=== PATIENT | female | born 1930 | race Caucasian/White ===

== ENCOUNTER 2019-03-11 12:10 | Emergency (ER) | payer OTHER ==
[~2019-03-11] VITALS: Ht 147.3 cm; Wt 59.0 kg
[2019-03-11] MEDS ORDERED: SYNTHROID75 MCG PO (13:39)
[2019-03-11 13:50] LABS: CALCIUM 9.4 mg/dL (8.5-10.1); CREATININE 0.9 mg/dL (0.6-1.0); POTASSIUM 3.9 mmol/L (3.5-5.1)
[2019-03-11 14:02] LABS: APTT 25.4 Seconds (24.5-32.8); D-DIMER 0.75 ug/mLFEU (0.19-0.50); PROTIME 10.7 Seconds (9.3-11.4)
[2019-03-11] MEDS ORDERED: ACETAMINOPHEN-1 EAC1 PO (14:57)
[2019-03-11] MEDS ORDERED: PREDNISONE 20 M20 MG PO (14:57)
[2019-03-11 17:03] VITALS: BP 120/59
--- NOTE | 2019-03-12 11:09 | EKG ---
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1930 Requested By: Juan Valles Order Number: [id number] MD: Rey Ramos Measurements Intervals [place] Rate: 97 P: 39 ME: 180 QRS: -10 QRSD: 79 T: 20 QT: 356 QTc: 452 Interpretive Statements Sinus rhythm Left ventricular hypertrophy Diffuse ST segment elevation, consider repolarization, pericarditis, or injury No previous ECG available for comparison Electronically Signed On 03-12-2019 11:08:53 CDT by Rey Ramos [email or web address] ��������������������������������������������� <ELECTRONICALLY SIGNED> ���������������������������������������� By: Rey Ramos MD, [facility] ��������������������������������������������� 03/12/19 1108 1311 10 Rey Ramos MD, F[facility] /EPI
== END 2019-03-11 17:03 | disposition home or self-care (01) ==
LOC: ER 12:10
PROVIDERS: Emergency Medicine
DX: J84.10 Pulmonary fibrosis, unspecified (principal); R07.89 Other chest pain; I10 Essential (primary) hypertension; E03.9 Hypothyroidism, unspecified; Z77.22 Contact with and (suspected) exposure to environmental tobacco smoke (acute) (chronic)

== ENCOUNTER 2019-03-18 15:36 | Inpatient (IN) | payer OTHER ==
[~2019-03-18] VITALS: Ht 147.3 cm; Wt 58.2 kg
[~2019-03-18 15:36] MED LIST: ACETAMINOPHEN-1 EAC1 PO; PREDNISONE 20 M20 MG PO; SYNTHROID75 MCG PO
[2019-03-18 15:40] VITALS: BP 128/93
[2019-03-18 17:25] VITALS: BP 121/93
[2019-03-18 17:54] VITALS: BP 128/93
--- NOTE | 2019-03-18 18:35 | NUR ---
REC PT AT 1830, SHE IS LETHARGIC, YET A&0X4, INSTRUCTIONS GIVEN AND WILL BE GIVEN AGAIN NEEDED D/T LETHARGIC STATE UPON ARRIVAL OF MATERIALS SCIENTIST PROCEDURE. R GROIN SITE DRESSING INTACT, NO HEMATOMA, SEE DATA FLOW SHEET FOR VS/ASSESSMENT, WILL GIVE REPORT TO HS SHIFT AND REVIEW ORDERS NEEDED. HEMOSTATIS REPORTED BEING DONE, BY MATERIALS SCIENTIST STAFF, AT 1815. HOB AT 30DEGREES
[2019-03-18 18:39] VITALS: BP 102/58
[2019-03-18 20:32] VITALS: BP 98/57
[2019-03-18 23:14] LABS: HEMATOCRIT 36.6 % (37.0-47.0); HEMOGLOBIN 12.4 gm/dL (12.0-15.0); MCH 29.7 pg (26.0-34.0); MCHC 33.8 g/dL (28.0-37.0); PLATELET COUNT 294 thou/uL (150-400); RBC 4.16 mil/uL (4.20-5.00); RDW 14.8 % (10.5-14.5); WBC 12.9 thou/uL (4.0-11.0)
[2019-03-18 23:15] LABS: CALCIUM 8.7 mg/dL (8.5-10.1); CREATININE 1.2 mg/dL (0.6-1.0); POTASSIUM 3.9 mmol/L (3.5-5.1)
[2019-03-18 23:26] LABS: ALBUMIN 2.6 g/dL (3.4-5.0); TOTAL BILIRUBIN 0.4 mg/dL (<0.1-1.0)
[2019-03-18 23:28] LABS: APTT 30.8 Seconds (24.5-32.8); INR 1.1; PROTIME 11.6 Seconds (9.3-11.4); TROPONIN-I 6.11 ng/mL (<0.06)
[2019-03-19] VITALS (8 sets, daily range): BP systolic 86–122; BP diastolic 43–77
[2019-03-19 00:06] LABS: ABSOLUTE NEUTROPHILS 8.9 thou/uL (1.4-8.2)
[2019-03-19 05:24] LABS: CALCIUM 8.5 mg/dL (8.5-10.1); CREATININE 1.1 mg/dL (0.6-1.0); POTASSIUM 3.5 mmol/L (3.5-5.1)
[2019-03-19 05:30] LABS: ALBUMIN 2.2 g/dL (3.4-5.0); MAGNESIUM 2.1 mg/dL (1.8-2.4); TOTAL BILIRUBIN 0.3 mg/dL (<0.1-1.0); TOTAL PROTEIN 6.2 g/dL (6.4-8.2)
[2019-03-19 05:36] LABS: CHOLESTEROL 145 mg/dL (<200); HDL CHOLESTEROL 37 mg/dL (>40); LDL CHOLESTEROL 83 mg/dL (<100); TC:HDL 3.9 Ratio (Not establshd); TRIGLYCERIDE 129 mg/dL (<150); VLDL 26 mg/dL (<40)
[2019-03-19 05:39] LABS: SERUM ASSESSMENT Clear
[2019-03-19 05:48] LABS: HEMATOCRIT 33.2 % (37.0-47.0); HEMOGLOBIN 11.7 gm/dL (12.0-15.0); MCH 31.6 pg (26.0-34.0); MCHC 35.3 g/dL (28.0-37.0); MCV 89.4 fL (80.0-100.0); PLATELET COUNT 256 thou/uL (150-400); RBC 3.71 mil/uL (4.20-5.00); RDW 15.1 % (10.5-14.5); WBC 10.6 thou/uL (4.0-11.0)
--- NOTE | 2019-03-19 06:02 | NUR ---
ASSUMED PT CARE AT 1900 WITH NO SIGN OF DISTRESS NOTED. PT ARRIVED TO THE UNIT RIGHT BEFORE SHIFT CHANGE FROM SCOREBOARD OPERATOR. PT WAS ON BEDREST TILL 2129. RIGHT GROIN SITE IS INTACT. ADMISSION ASSESMENT AND DATA COMPLETED. NO SIGN OF BLEEDING OR HEMATOMA NOTED, SCHEDULED MEDS ADMINISTERED TO PT. DENIES ANY NEEDS. FALL PRECAUTION IN PLACE.
--- NOTE | 2019-03-19 10:48 | 2DMMODE ---
[place] [address] [facility] [place] [address] 2 D/M-MODE ECHOCARDIOGRAM Name: ISAEL KEYES Room #: 202-P [facility] IN ..#: [id number] ������������� Admission: 03/18/19 ������������� Attend Phys: Zelalem Lyons MD Discharge: ��� ������������� ��� Date of : [birth year] Date of Service: 03/19/19 1048 �� Report #: [id number] �������� ��������������������������������������������[id number] THIS REPORT FOR: //name// APPROVED REPORT Study performed: 03/19/2019 08:13:56 EXAM: Comprehensive 2D, Doppler, and color-flow Echocardiogram Patient Location: Bedside Room #: 202 Status: on-call BSA: 1.54 BP: 99/45 mmHg Other Information Study Quality: Adequate Indications Elevated Troponin Chest Pain Hypertension/HDD 2D Dimensions RVDd: 29.12 mm IVSd: 11.11 (7-11mm) LVOT Diam: 17.53 (18-24mm) LVDd: 30.30 mm PWd: 7.78 (7-11mm) Ascending Ao: 27.64 (22-36mm) LVDs: 21.53 (25-40mm) Aortic Root: 26.78 mm IVC: 20.00 mm Volumes Left Atrial Volume (Systole) Single Plane 4CH: 35.08 mL Single Plane 2CH: 55.88 mL LA ESV Index: 31.00 mL/m2 Aortic Valve AoV Peak Josh.: 1.16 m/s AO Peak Gr.: 5.39 mmHg AI Vmax: 3.26 m/s AI Wallace: 2.33 m/s2 AI PHT: 405.06 ms Mitral Valve MV Decel. Time: 199.22 ms [facility] [address] [place] [address] 2 D/M-MODE ECHOCARDIOGRAM Name: ISAEL KEYES Room #: 202-P ADM IN ..#: [id number] ������������� Admission: 03/18/19 ������������� Attend Phys: Zelalem Lyons MD Discharge: ��� ������������� ��� Date of : [birth year] Date of Service: 03/19/19 1048 �� Report #: [id number] �������� ��������������������������������������������[id number] MV E Max Josh.: 1.07 m/s IVRT: 50.75 ms Pulmonary Valve PV Peak Josh.: 0.87 m/s PV Peak Gr.: 3.04 mmHg Tricuspid Valve RAP Estimate: 5.00 mmHg Left Ventricle The left ventricle is normal size. There is normal left ventricular wall thickness. The left ventricular systolic function is normal. The left ventricular ejection fraction is within the normal range. LVEF is 55-60%. This study is not technically sufficient to allow evaluation of the LV diastolic function. Right Ventricle The right ventricle is normal size. The right ventricular systolic function is normal. Atria The left atrium size is normal. The right atrium size is normal. Aortic Valve The aortic valve is normal in structure. Mild aortic regurgitation. There is no aortic valvular stenosis. Mitral Valve Mild mitral annular calcification. Trace mitral regurgitation. No evidence of mitral valve stenosis. Tricuspid Valve The tricuspid valve is normal in structure. Trace tricuspid regurgitation. Unable to assess PA pressure. Pulmonic Valve The pulmonary valve is normal in structure. Trace to mild pulmonic regurgitation. Great Vessels The aortic root is normal in size. IVC is normal in size and collapses >50% with inspiration. Pericardium Small circumferential pericardial effusion. No echo indications of [facility] [place] [address] 2 D/M-MODE ECHOCARDIOGRAM Name: STEPHYISAEL E Room #: 202-P [facility] IN M.R.#: [id number] ������������� Admission: 03/18/19 ������������� Attend Phys: Zelalem Lyons MD Discharge: ��� ������������� ��� Date of : [birth year] Date of Service: 03/19/19 1048 �� Report #: [id number] �������� ��������������������������������������������[id number] pericardial tamponade. <Conclusion> The left ventricle is normal size. LVEF is 55-60%. The aortic valve is normal in structure. Mild aortic regurgitation. Mild mitral annular calcification. Trace mitral regurgitation. The tricuspid valve is normal in structure. Trace tricuspid regurgitation. Unable to assess PA pressure. The pulmonary valve is normal in structure. Trace to mild pulmonic regurgitation. Small circumferential pericardial effusion. No echo indications of pericardial tamponade. ��������������������������������������������� <ELECTRONICALLY SIGNED> ���������������������������������������� By: Remy Renee MD ��������������������������������������������� 03/19/19 1048 1048 1048 Remy Renee MD /INF
--- NOTE | 2019-03-19 17:03 | NUR ---
PT ALERT AND ORIENTED X4. REPORTS THAT SHE HAS SLIGHT PAIN IN CHEST WHEN SHE TAKES A DEEP BREATH. DR SABILLON IMFORMED. ST WITH P AFIB. HR 120-140'S WITH MOVMENT. PT WALKING WITH PHYSICAL THERAPY [place] TODAY. PT STATES SHE LOST HER BELONGINGS YESTERDAY. CALLED ER, [facility] AND HER FAMILY TO SEE IF THEY HAVE THEM. COMPUTER PROJECT MANAGER NOTIFIED. WILL CONTINUE TO MONITOR PATIENT.
--- NOTE | 2019-03-20 03:05 | NUR ---
ASSUMED CARE OF PATIENT AT 1900. VSS, AFEBRILE. C/O RIGHT SHOULDER PAIN, TYLENOL GIVEN PER EMAR, STATES ADEQUATE RELIEF. UP TO THE BATHROOM TO VOID, HEART RATE WITHIN NORMAL LIMITS. CALLS OUT APPROPRIATELY. PROGRESSING WELL TOWARDS POC GOALS.
[2019-03-20 03:24] VITALS: BP 103/61
[2019-03-20 05:41] LABS: CALCIUM 8.7 mg/dL (8.5-10.1); CREATININE 0.9 mg/dL (0.6-1.0); POTASSIUM 3.8 mmol/L (3.5-5.1)
[2019-03-20 05:59] LABS: HEMATOCRIT 32.2 % (37.0-47.0); HEMOGLOBIN 11.3 gm/dL (12.0-15.0); MCH 31.9 pg (26.0-34.0); MCHC 35.1 g/dL (28.0-37.0); MCV 90.9 fL (80.0-100.0); RBC 3.54 mil/uL (4.20-5.00); RDW 15.3 % (10.5-14.5); WBC 8.8 thou/uL (4.0-11.0)
[2019-03-20 08:31] VITALS: BP 124/72
[2019-03-20 11:30] VITALS: BP 92/60
[2019-03-20 15:40] VITALS: BP 112/62
--- NOTE | 2019-03-20 15:55 | NUR ---
ASSUMED CARE OF PT AT SHIFT CHANGE. ASSESSMENTS CHARTED. MEDS GIVEN PER MAR. VSS, NO C/O PAIN, DENIES SOB, CP, O2 SATS WNL ON RA. PT UP X1 ASSIST, TOLERATING WELL. APPETITE ADEQUATE, PT CURRENTLY RESTING IN BED, DENIES CONCERNS, WILL CONT TO MONITOR AND FOLLOW POC.
[2019-03-20 19:27] VITALS: BP 112/61
--- NOTE | 2019-03-20 19:47 | EKG ---
[address] [address] ELECTROCARDIOGRAM REPORT Name: ISAEL KEYES Room #: 202-P ADM IN M.R.#: [id number] ������������������ Admission: 03/18/19 ������������������ Attend Phys: Zelalem Lyons MD Discharge: ������������������ Date of : [birth year] Report #: [id number] ����������������������������������������������������������������� [id number] THIS REPORT FOR: //name// 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 : 1930 Requested By: Kaleb Way Order Number: [id number] MD: Odilon Patel Measurements Intervals [place] Rate: 95 P: 24 TN: 175 QRS: -16 QRSD: 80 T: 28 QT: 387 QTc: 487 Interpretive Statements Sinus tachycardia Atrial premature complexes Left ventricular hypertrophy Lateral infarct, acute Compared to ECG 03/11/2019 13:11:37 Atrial premature complex(es) now present Myocardial infarct finding now present Sinus rhythm no longer present ST (T wave) deviation no longer present Electronically Signed On 03-20-2019 19:47:43 CDT by Odilon Patel [email or web address] ��������������������������������������������� <ELECTRONICALLY SIGNED> ���������������������������������������� By: Odilon Patel MD ��������������������������������������������� 03/20/19 1947 1538 1538 Odilon Patel MD /EPI
--- NOTE | 2019-03-20 19:48 | EKG ---
[address] [address] ELECTROCARDIOGRAM REPORT Name: ISAEL KEYES Room #: 202-P ADM IN M.R.#: [id number] ������������������ Admission: 03/18/19 ������������������ Attend Phys: Zelalem Lyons MD Discharge: ������������������ Date of : [birth year] Report #: [id number] ����������������������������������������������������������������� [id number] THIS REPORT FOR: //name// 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 : 1930 Requested By: Radha Herrera Order Number: [id number] MD: Odilon Patel Measurements Intervals [place] Rate: 89 P: 26 ID: [id number] QRS: -18 QRSD: 80 T: 15 QT: 384 QTc: 468 Interpretive Statements Sinus rhythm Abnormal R-wave progression, early transition Left ventricular hypertrophy ST elevation, consider lateral injury Compared to ECG 03/11/2019 13:11:37 Myocardial infarct finding now present ST (T wave) deviation still present Electronically Signed On 03-20-2019 19:48:07 CDT by Odilon Patel [email or web address] ��������������������������������������������� <ELECTRONICALLY SIGNED> ���������������������������������������� By: Odilon Patel MD ��������������������������������������������� 03/20/19 1948 1618 1618 Odilon Patel MD /EPI
--- NOTE | 2019-03-20 19:52 | EKG ---
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 : 1930 Requested By: Odilon Patel Order Number: [id number] MD: Odilon Patel Measurements Intervals [place] Rate: 97 P: -15 PA: 159 QRS: -15 QRSD: 79 T: 18 QT: 377 QTc: 479 Interpretive Statements Sinus rhythm with frequent PACs and atrial tachy ST changes resolved Electronically Signed On 03-20-2019 19:51:57 CDT by Odilon Patel [email or web address] ��������������������������������������������� <ELECTRONICALLY SIGNED> ���������������������������������������� By: Odilon Patel MD ��������������������������������������������� 03/20/191950 7 Odilon Patel MD /OMER
[2019-03-21 04:28] VITALS: BP 111/55
--- NOTE | 2019-03-21 04:50 | NUR ---
ASSUMED CARE OF PATIENT AT 1900. VSS, AFEBRILE. SLEPT WELL THROUGH THE NIGHT. CONTINUES TO HAVE MILD SHOULD PAIN ALLEVIATED BY TYLENOL. STATES THAT WHEN SHE WAS BROUGHT BY EMS FROM [place] HER WALLET AND CLOTHES WERE WITH HER. THIS RN UNABLE TO FIND ANY PERSONAL BELONGINGS IN ROOM. PER ADMISSION ASSESSMENT, PATIENT HAD NONE WITH HER. WORKING TOWARDS POC GOALS.
[2019-03-21 07:40] VITALS: BP 136/66
[2019-03-21 09:35] LABS: CALCIUM 8.4 mg/dL (8.5-10.1); POTASSIUM 3.7 mmol/L (3.5-5.1)
--- NOTE | 2019-03-21 10:17 | NUR ---
met with patient who admits with nstemi/afib. 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 She walks daily outside and reports independent with adls and self care. Her son lives in area and supportive. Patient concerned she lost her purse. RN aware. Sp with [facility] they have no purse in possession. Patient transferred to [facility] from [facility].
[2019-03-21 11:45] VITALS: BP 106/67
[2019-03-21 15:34] VITALS: BP 116/63
[2019-03-21 20:04] VITALS: BP 143/79
[2019-03-22 05:00] VITALS: BP 140/70
[2019-03-22 05:33] LABS: HEMATOCRIT 34.4 % (37.0-47.0); HEMOGLOBIN 11.5 gm/dL (12.0-15.0); MCH 29.7 pg (26.0-34.0); MCHC 33.5 g/dL (28.0-37.0); MCV 88.6 fL (80.0-100.0); RBC 3.89 mil/uL (4.20-5.00); RDW 15.2 % (10.5-14.5); WBC 8.4 thou/uL (4.0-11.0)
[2019-03-22 05:40] LABS: CALCIUM 8.7 mg/dL (8.5-10.1); CREATININE 0.8 mg/dL (0.6-1.0); POTASSIUM 4.2 mmol/L (3.5-5.1)
--- NOTE | 2019-03-22 06:00 | NUR ---
ASSESSMENT CHARTED. VSS. PT DENIES PAIN, SOA, N/V, DIZZINESS. PT WAITING ON FOLLOWUP FROM MANAGEMENT ABOUT MISSING BELONGINGS IN PREVIOUS NURSES NOTES. STBY TO BATHROOM AND SHOWER. SLEEPING WELL THROUGHOUT THE NIGHT. NPO AT MIDNIGHT. PLAN FOR [employer] TODAY. WILL CONTINUE TO MONITOR AND WITH POC.
[2019-03-22 07:55] VITALS: BP 118/45
--- NOTE | 2019-03-22 12:17 | NUR ---
ACT post cath rechecked in cv holding is 219. will recheck on 30min to pull R fem sheath
[2019-03-22 13:48] VITALS: BP 135/64
--- NOTE | 2019-03-22 13:53 | NUR ---
1330; ACT 186. R Fem Art sheath pulled. pressure held x 10 min. Sterile dsg applied to site with no bleeding or hematoma noted except for small minda noted pre-op at same area. Pt taken to ccu 202 with report given to Saranya BELL. Pt stable. VSS.
[2019-03-22 15:30] VITALS: BP 127/57
--- NOTE | 2019-03-22 17:18 | NUR ---
ASSUMED CARE OF PT AT SHIFT CHANGE. ASSESSMENTS CHARTED. MEDS GIVEN PER OCT. PT ALERT AND ORIENTED, VSS, DENIES PAIN, DENIES CP, SOB. O2 SATS WNL ON ROOM AIR. PT HAD CATH THIS SHIFT WITH STENT PLACEMENT. RIGHT GROIN CDI, BRUSING NOTED, NO HEMATOMA. BEDREST COMPLETED, PT URINATED ADEQUATEY SINCE PROCEDURE. APPETITE ADEQUATE. GROIN SITE CONTINUES TO BE CDI WITH BRUISING, NO HEMATOMA. DENIES CONCERNS AT THIS TIME. WILL CONT TO MONITOR AND FOLLOW POC.
[2019-03-22 20:45] VITALS: BP 136/68
[2019-03-23 00:45] VITALS: BP 109/59
--- NOTE | 2019-03-23 02:33 | NUR ---
ASSESSMENT CHARTED. PT DENIES CP, N/V, DIZZINESS, SOA. X1 ASSIST TO COMMOD STATED SHE FEELS WEAKER. R GROIN SITE CDI BRUISING, NO HEMATOMA OR BRUIT. PT HOPEFUL TO D/C TOMORROW. PLAN FOR LABS THIS AM. WILL CONTINUE TO MONITOR AND WITH POC.
[2019-03-23 04:45] VITALS: BP 136/73
[2019-03-23 05:06] LABS: CALCIUM 8.3 mg/dL (8.5-10.1); CREATININE 0.9 mg/dL (0.6-1.0)
[2019-03-23] MEDS ORDERED: CLOPIDOGREL75 MG PO (08:06)
[2019-03-23] MEDS ORDERED: LIPITOR40 MG PO (08:06)
[2019-03-23] MEDS ORDERED: TRI-BUFFERED A325 M1 PO (08:06)
[2019-03-23] MEDS ORDERED: MULTAQ 400 MG400 MG PO (08:06)
[2019-03-23] MEDS ORDERED: METOPROLOL SUCC25 M1 PO (08:06)
--- NOTE | 2019-03-23 08:08 | EKG ---
[address] [place] [employer] [address] ELECTROCARDIOGRAM REPORT Name: ISAEL KEYES Room #: 202-P ADM IN M.R.#: [id number] ������������������ Admission: 03/18/19 ������������������ Attend Phys: Zelalem Lyons MD Discharge: ������������������ Date of : [birth year] Report #: [id number] ����������������������������������������������������������������� [id number] THIS REPORT FOR: //name// 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 : 1930 Requested By: Ismael Steen Order Number: [id number] MD: Rey Ramos Measurements Intervals [place] Rate: 85 P: 53 CA: 184 QRS: -23 QRSD: 80 T: -32 QT: 391 QTc: 465 Interpretive Statements Sinus rhythm Left ventricular hypertrophy Borderline T abnormalities, inferior leads Compared to ECG 03/19/2019 09:58:41 Atrial premature complexes are no longer present Electronically Signed On 03-23-2019 8:08:06 CDT by Rey Ramos [email or web address] ��������������������������������������������� <ELECTRONICALLY SIGNED> ���������������������������������������� By: Rey Ramos MD, [facility] ��������������������������������������������� 03/23/19 0808 1139 1139 Rey Ramos MD, [facility] /EPI
[2019-03-23 08:15] VITALS: BP 129/62
--- NOTE | 2019-03-23 08:19 | EKG ---
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 : 1930 Requested By: Soumya Rm Order Number: [id number] MD: Rey Ramos Measurements Intervals [place] Rate: 90 P: 37 IN: 183 QRS: -17 QRSD: 80 T: -51 QT: 421 QTc: 515 Interpretive Statements Sinus rhythm Left ventricular hypertrophy Borderline T abnormalities, diffuse leads Prolonged QT interval Compared to ECG 03/19/2019 09:58:41 No significant change was found Electronically Signed On 03-23-2019 8:19:42 CDT by Rey Ramos [email or web address] ��������������������������������������������� <ELECTRONICALLY SIGNED> ���������������������������������������� By: Rey Ramos MD, [facility] ��������������������������������������������� 03/23/19818 4 4 Rey Ramos MD, [facility] /EPI
[2019-03-23 12:05] VITALS: BP 104/55
--- NOTE | 2019-03-23 12:23 | NUR ---
patient to pa home today with HH care. She has no preference for HH agency any that services her area. Patients PCP Dr De La oTrre and verified her address and phone number for HH care.
--- NOTE | 2019-03-23 12:28 | NUR ---
FAXED REFERRAL TO A [facility] SPOKE WITH FRANCOISE IN INTAKE AND SHE WILL REVIEW. PT TO DC TODAY TO HOME. DCP TO FOLLOW.
[2019-03-23 12:59] VITALS: BP 104/55
[2019-03-23 14:26] VITALS: BP 104/55
--- NOTE | 2019-03-24 10:20 | CATHLAB ---
[facility] [place] [address] INVASIVE PROCEDURE REPORT Name: ISAEL KEYES Room #: 202-P [facility]#: [id number] ������������� Admission: 03/18/19 ������������� Attend Phys: Zelalem Lyons MD Discharge: ��� 03/23/19 ������������� ��� Date of : [birth year] Date of Service: 03/24/19 1019 �� Report #: [id number] �������� ��������������������������������������������[id number] THIS REPORT FOR: //name// APPROVED REPORT Study performed: 03/22/2019 11:21:14 Patient Details The patient is a 88 year-old female Event Personnel Ismael Steen Certified Prosthetist/Orthotist, Mikhail Portillo RN, Katherine Chavis RTR, Barrington Vega Valisa Monitor Procedures Performed YASIR Place w/wo Plasty Single Left Main 997951 YASIR Place w/wo Plasty Single RCA 485701 , Right Heart Catheterization Procedure Narrative The Right Groin^ was infiltrated with 1% Lidocaine subcutaneous anesthesia. A PINNACLE 6FR Sheath #[id number] sheath was inserted into the RFA^. Coronary angiography was performed using coronary diagnostic catheters. The patient tolerated the procedure well and there were no complications associated with the procedure. There was no hematoma. Intraoperative Conscious Sedation Sedation start time: 926 Case end Time: 1026 Fentanyl 25 mcg Versed 1 mg Fluoro Time: 12.01 minutes Dose: DAP 8292.00 cGycm2 1155 mGy Contrast Type and Amount: Omnipaque 145 ml Hemodynamics The aortic pressure is 158/55 mmHg with a mean of 103 mmHg. PCI Technique Lesion Percutaneous coronary intervention was performed on the mid right coronary artery. A VISTA 6FR IM #[id number] Guide Catheter was used to engage the ostium. A Luge Wire .014 x 182CM #[id number] Interventional Guidewire was used to cross the lesion. BALLOON DILATION [facility] [place] [address] INVASIVE PROCEDURE REPORT Name: ISAEL KEYES Room #: 202-P [facility] IN ..#: [id number] ������������� Admission: 03/18/19 ������������� Attend Phys: Zelalem Lyons MD Discharge: ��� 03/23/19 ������������� ��� Date of : [birth year] Date of Service: 03/24/19 1019 �� Report #: [id number] �������� ��������������������������������������������[id number] A Balloon catheter Sprinter OTW 2.5 x 12 #[id number] was inserted and inflated up to 12.00atm for 18seconds. Additional Inflation: 12.00atm for 14seconds. STENT DEPLOYMENT A stent RESOLUTE FLAKITA OTW 2.5 X 15 #[id number] was inserted and inflated up to 16.00atm for 19seconds. PCI Technique Lesion 2 Percutaneous Coronary Intervention was performed on the LEFT MAIN. A 6FR LAUNCHER EBU 3.0 #[id number] Guide Catheter was used to engage the ostium. A Luge Wire .014 x 182CM #[id number] Interventional Guidewire was used to cross the lesion. Balloon Dilation A Balloon catheter Sprinter OTW 2.5 x 12 #[id number] was inserted and inflated up to leanna for seconds. Stent Deployment A stent RESOLUTE FLAKITA OTW 3.0 X 8 #[id number] was inserted and inflated up to 14atm for 14seconds. Post Stent Deployment Balloon Dilation A Balloon catheter Euphora NC RX 3.0 x 6 #[id number] was inserted and inflated up to 20atm for 27seconds. Conclusion #1 successful PTCA stent of a high-grade distal left main lesion with placement of a 30 by 8 resolute drug-eluting stent postdilated 3.2 mm yielding 0% residual AMANDA grade 3 flow. Jailing of circumflex artery remains patent with brisk flow. #2 successful PTCA stent of a 99% mid RCA lesion dominant vessel placement of a 2.5 x 12 resolute Hettinger drug-eluting stent to 2.75 mm AMANDA grade 3 flow no dissection or thrombus formation Recommendations and plan: Continue aggressive risk factor modification. Dual antiplatelet therapy will need to be maintained. Patient is transferred to CCU in stable condition. There is moderate ostial pinching of the circumflex takeoff which was jailed by the left main stent. Does not appear to be flow-limiting. [facility] [address] [place] [address] INVASIVE PROCEDURE REPORT Name: ISAEL KEYES Room #: 202-P [facility] IN M.R.#: [id number] ������������� Admission: 03/18/19 ������������� Attend Phys: Zelalem Lyons MD Discharge: ��� 03/23/19 ������������� ��� Date of : [birth year] Date of Service: 03/24/19 1019 �� Report #: [id number] �������� ��������������������������������������������[id number] Will not proceed with further intervention. Excellent flow through the left main LAD system and dominant right as stated above. ��������������������������������������������� <ELECTRONICALLY SIGNED> ���������������������������������������� By: Ismael Steen MD, FACC ��������������������������������������������� 03/24/19 1019 101 18 Ismael Steen MD, FACC /INF
== END 2019-03-23 15:52 | disposition home health service (06) | DRG 246 ==
LOC: ER 15:36 → 2N 18:44
PROVIDERS: Emergency Medicine; Hospitalist; Nurse Practitioner; Nurse Practitioner Adult Health; ADMIT Hospitalist
DX: I21.3 ST elevation (STEMI) myocardial infarction of unspecified site (principal); E43 Unspecified severe protein-calorie malnutrition; E03.9 Hypothyroidism, unspecified; I10 Essential (primary) hypertension; I48.0 Paroxysmal atrial fibrillation; E78.5 Hyperlipidemia, unspecified; J84.10 Pulmonary fibrosis, unspecified; I11.9 Hypertensive heart disease without heart failure; R79.89 Other specified abnormal findings of blood chemistry; Z66 Do not resuscitate; I25.10 Atherosclerotic heart disease of native coronary artery without angina pectoris; Z77.22 Contact with and (suspected) exposure to environmental tobacco smoke (acute) (chronic); Z79.899 Other long term (current) drug therapy; Z98.42 Cataract extraction status, left eye; Z98.41 Cataract extraction status, right eye
CPT/HCPCS: 10081